=== PATIENT | male | born 1970 | race Caucasian/White ===

== ENCOUNTER 2022-09-26 03:46 | Emergency (ER) | payer OTHER ==
[~2022-09-26] VITALS: Ht 175.3 cm; Wt 113.6 kg
[2022-09-26] MEDS ORDERED: MORPHINE SULFATE 4 MG/ML SYRINGE IVP ONE (04:00)
[2022-09-26] MEDS ORDERED: PERTUSS(ACELL),DIPH,TET VAC/PF 0.5 ML SYRINGE IM. ONE (04:00)
[2022-09-26] MEDS ORDERED: ONDANSETRON HCL 4 MG/2 ML VIAL IVP ONE (04:00)
[2022-09-26] MEDS ORDERED: BACITRACIN 0.9 GM PACKET OINTMENT TP ONE (04:00)
[2022-09-26] MEDS ORDERED: SODIUM CHLORIDE 0.9% 1,000 ML IV ONE (04:00)
[2022-09-26 05:58] VITALS: BP 150/89
[2022-09-26] MEDS ORDERED: IBUP-1554 PO ×2 (06:00→11:57)
[2022-09-26] MEDS ORDERED: ACET-2080 PO (06:00)
[2022-09-26] MEDS ORDERED: BACL10TA PO ×2 (06:00→11:57)
== END 2022-09-26 06:37 | disposition home or self-care (01) ==
LOC: EMS 03:48
DX: S01.01XA Laceration without foreign body of scalp, initial encounter (principal); S13.4XXA Sprain of ligaments of cervical spine, initial encounter; F17.210 Nicotine dependence, cigarettes, uncomplicated; Z98.890 Other specified postprocedural states; V49.9XXA Car occupant (driver) (passenger) injured in unspecified traffic accident, initial encounter; Y93.89 Activity, other specified; Y92.89 Other specified places as the place of occurrence of the external cause; Y99.8 Other external cause status
CPT/HCPCS: 99285; 70450; 96374; 71045; 96361; 96375; 71250; 72125; 74150; 12004; 72192; J2270; J2405; J7030; 90715

== ENCOUNTER 2022-10-08 21:33 | Emergency (ER) | payer OTHER ==
[~2022-10-08] VITALS: Ht 175.3 cm; Wt 109.1 kg
[~2022-10-08 21:33] MED LIST: ACET-2080 PO; BACL10TA PO; IBUP-1554 PO
[2022-10-08 21:43] VITALS: BP 155/92
== END 2022-10-09 03:01 | disposition home or self-care (01) ==
LOC: EMS 21:35
DX: S01.00XD Unspecified open wound of scalp, subsequent encounter (principal); F17.210 Nicotine dependence, cigarettes, uncomplicated; Z98.890 Other specified postprocedural states; Z48.02 Encounter for removal of sutures; X58.XXXD Exposure to other specified factors, subsequent encounter
CPT/HCPCS: 99281; Z7502

== ENCOUNTER 2023-12-21 12:21 | Emergency (ER) | payer OTHER ==
[~2023-12-21] VITALS: Ht 177.8 cm; Wt 113.6 kg
[2023-12-21 12:23] VITALS: TEMP 98.3
[2023-12-21 13:53] LABS: BASOPHILS % (AUTO) 0.4 % (0.0-2.0); EOSINOPHILS % (AUTO) 1.4 % (1.0-6.0); HEMATOCRIT 39.7 % (41-53); HEMOGLOBIN 13.2 g/dL (13.5-17.5); LYMPHOCYTES # (AUTO) 1.3 K/uL (1.0-4.8); LYMPHOCYTES % (AUTO) 12.5 % (22.0-44.0); MEAN CORPUSCULAR HEMOGLOBIN 31.5 pg (26.0-34.0); MEAN CORPUSCULAR HGB CONC 33.3 G/dL (31.0-37.0); MEAN CORPUSCULAR VOLUME 95 fL (80-100); MONOCYTES # (AUTO) 0.9 K/uL (0.1-1.0); MONOCYTES % (AUTO) 8.5 % (2.0-9.0); NEUTROPHILS # (AUTO) 7.7 K/uL (1.8-7.7); NEUTROPHILS % (AUTO) 77.2 % (40.0-70.0); PLATELET COUNT (AUTO) 115 K/uL (150-450); RED BLOOD CELL COUNT(AUTO) 4.19 MIL/uL (4.50-5.90); RED CELL DISTRIBUTION WIDTH 13.8 % (11.5-14.5)
[2023-12-21 14:00] VITALS: BP 143/70; PULSE 85; RESP 16
[2023-12-21 14:08] LABS: ANION GAP 4 mmol/L (8-16); CALCIUM, TOTAL 8.8 mg/dL (8.8-10.5); CARBON DIOXIDE 33 mmol/L (22-29); CHLORIDE 101 mmol/L (98-107); CREATININE 0.83 mg/dL (0.60-1.30); GLOMERULAR FILTR. RATE CALC > 60 mL/min (>60); GLUCOSE,RANDOM 248 mg/dL (70-110); POTASSIUM 4.2 mmol/L (3.5-5.1); SODIUM SERUM 138 mmol/L (136-145); UREA NITROGEN, BLOOD 11 mg/dL (7-18)
[2023-12-21] MEDS: IBUPROFEN 600 MG TABLET PO ONE (14:15)
[2023-12-21 14:16] LABS: LACTIC ACID 1.8 mmol/L (0.4-2.0)
[2023-12-21] MEDS ORDERED: CEPH-558 PO (14:30)
[2023-12-21] MEDS ORDERED: TRAM50TA5 PO (14:30)
== END 2023-12-21 19:05 | disposition home or self-care (01) ==
LOC: EMS 12:21
DX: L08.9 Local infection of the skin and subcutaneous tissue, unspecified (principal); F17.210 Nicotine dependence, cigarettes, uncomplicated; F15.90 Other stimulant use, unspecified, uncomplicated; Z98.890 Other specified postprocedural states
CPT/HCPCS: 80048; 83605; 85025; 99284